=== PATIENT | male | born 1950 | race Hispanic/Latino ===

== ENCOUNTER 2018-12-09 06:32 | Day surgery (SDC) | payer MEDICARE ==
[2018-12-06 12:50] VITALS: BP 120/77
[2018-12-06 13:19] LABS: BASOPHILS % (AUTO) 0.9 % (0.0-5.0); EOSINOPHILS % (AUTO) 3.1 % (0.0-8.0); HEMATOCRIT 45.4 % (42-54); LYMPHOCYTES % (AUTO) 23.3 % (21.0-51.0); MEAN CORPUSCULAR HEMOGLOBIN 32.2 pg (27.0-33.0); MEAN CORPUSCULAR HGB CONC 34.6 g/dL (32.0-36.0); MEAN CORPUSCULAR VOLUME 93.1 fL (79-99); MONOCYTES % (AUTO) 5.5 % (3.0-13.0); NEUTROPHILS % (AUTO) 67.2 % (40.0-77.0); NUCLEATED RED BLOOD CELLS 0.1 % (0.0-0.19); PLATELET COUNT (AUTO) 158 K/uL (130-400); RED BLOOD CELL COUNT(AUTO) 4.87 MIL/uL (4.50-6.20); RED CELL DISTRIBUTION WIDTH 13.3 % (11.0-15.5); WHITE BLOOD COUNT (AUTO) 6.3 K/uL (4.8-10.8)
[2018-12-06 13:23] LABS: APPEARANCE,URINE Clear (CLEAR); BILIRUBIN,URINE Negative (NEGATIVE); COLOR,URINE Yellow (YELLOW); GLUCOSE, URINE (UA) >=1000 mg/dL (NEGATIVE); KETONES,URINE Negative (NEGATIVE); LEUKOCYTE ESTERASE ,URINE Small (NEGATIVE); NITRATE,URINE Negative (NEGATIVE); OCCULT BLOOD,URINE Negative (NEGATIVE); PROTEIN,URINE Trace mg/dL (NEGATIVE)
[2018-12-06 13:26] LABS: CREATININE 0.9 mg/dL (0.5-1.5); POTASSIUM 3.8 mmol/L (3.5-5.1)
[2018-12-06 13:28] LABS: INR 0.97 (0.85-1.15); PARTIAL THROMBOPLASTIN TIME 27.9 SEC (26.3-35.5); PROTHROMBIN TIME 10.2 SEC (9.6-11.6)
[2018-12-06 13:39] LABS: BACTERIA,URINE Rare /HPF (None Seen); RBC,URINE 0-1 /HPF (0-1)
[2018-12-06 13:40] LABS: MUCUS,URINE Moderate LPF (None Seen); SQUAMOUS EPITHELIAL CELL,UR Rare /HPF (0-2)
--- NOTE | 2018-12-06 13:58 | NUR ---
INSULIN PATIENT STATES HE HAS NOT BEEN ON INSULIN FOR 3 WEEKS BECAUSE HIS PHARMACIST TOLD HIM HE NEEDED A NEW RX BUT HAS NOT GONE TO SEE HIS PCP. ADVISED PATIENT TO SEE PCP FOR INSULIN RX SINCE HE WOULD NOT BE ON METFORMIN FOR 48 HOURS PRIOR TO HIS PROCEDURE AND NEEDED TO COVERED WITH THE INSULIN. SAID HE WOULD TRY TO GO TO HIS PCP TODAY.
[~2018-12-09] VITALS: Ht 167.6 cm; Wt 73.5 kg
[2018-12-09] VITALS (14 sets, daily range): BP systolic 87–155; BP diastolic 58–85
[~2018-12-09 06:32] MED LIST: LISINOPRIL PO; METF-446 PO; SODIUM CHLORIDE 0.9% 500ML 500 ML IV SCH
--- NOTE | 2018-12-09 07:20 | NUR ---
DID NOT BRING MEDS CALLED ROBERT CHISHOLM NP AND INFORMED HER THAT PATIENT DID NOT BRING HIS MEDS TODAY OR TO PRE-OP. PER ROBERT, OK TO USE MED LIST FROM DR LIZ HISTORY/PHYSICAL AND PROCEED WITH SCHEDULED PROCEDURE.
[2018-12-09] MEDS ORDERED: LISI40TA4 PO (07:36)
[2018-12-09] MEDS ORDERED: EZET10TA48 PO (07:36)
[2018-12-09] MEDS ORDERED: TAMS-1 PO (07:36)
[2018-12-09] MEDS ORDERED: TERB250T51 PO (07:36)
[2018-12-09] MEDS ORDERED: AEC81 PO (07:36)
[2018-12-09] MEDS ORDERED: METO25TA6 PO (07:45)
[2018-12-09] MEDS ORDERED: LABE100T5 PO (07:45)
[2018-12-09] MEDS ORDERED: SODIUM CHLORIDE 0.9% 1000ML 1,000 ML IV ONE (07:57)
[2018-12-09] MEDS ORDERED: IOHEXOL 350 MG/ML 100ML INFUS..BTL IV ONE (10:01)
[2018-12-09] MEDS ORDERED: IOHEXOL-350 50ML VIAL IV ONE (10:01)
[2018-12-09] MEDS ORDERED: LIDOCAINE HCL 2% 20ML ONE (10:01)
[2018-12-09] MEDS ORDERED: GLUCAGON 1MG KIT 1 MG ML IM PRN (11:30)
[2018-12-09] MEDS ORDERED: DEXTROSE 50%-WATER 50 ML DISP.SYRIN IV PRN (11:30)
== END 2018-12-09 15:16 | disposition home or self-care (01) ==
LOC: DAH 06:32
PROVIDERS: ATTEND Internal Medicine Cardiovascular Disease
DX: I25.10 Atherosclerotic heart disease of native coronary artery without angina pectoris (principal); I10 Essential (primary) hypertension; E78.5 Hyperlipidemia, unspecified; E11.9 Type 2 diabetes mellitus without complications; N40.0 Benign prostatic hyperplasia without lower urinary tract symptoms; Z79.84 Long term (current) use of oral hypoglycemic drugs; Z79.899 Other long term (current) drug therapy; Z90.49 Acquired absence of other specified parts of digestive tract; Z79.01 Long term (current) use of anticoagulants
CPT/HCPCS: 36415; 71045; 80048; 81001; 82948 ×2; 85025; 85610; 85730; 93005; 93458; A4606; C1760; C1894; J1644; J3490; J7030; Q9965; Q9967 ×2